=== PATIENT | female | born 1995 | race Caucasian/White ===

== ENCOUNTER 2018-01-06 19:08 | Emergency (ER) | payer OTHER ==
[~2018-01-06] VITALS: Ht 162.6 cm; Wt 97.5 kg
[2018-01-06 19:09] VITALS: BP 143/80
[2018-01-06] MEDS ORDERED: IBUPROFEN 600 MG TABLET PO ONE ×2 (19:19→19:30)
== END 2018-01-06 20:33 | disposition home or self-care (01) ==
LOC: ER 19:09
DX: S70.01XA Contusion of right hip, initial encounter (principal); S10.91XA Abrasion of unspecified part of neck, initial encounter; V49.59XA Passenger injured in collision with other motor vehicles in traffic accident, initial encounter; Y93.89 Activity, other specified; Y92.413 State road as the place of occurrence of the external cause; Y99.8 Other external cause status
CPT/HCPCS: 72170-TC; A4606; Z7610